=== PATIENT | female | born 1935 | race Caucasian/White ===

== ENCOUNTER 2021-11-16 10:30 | Inpatient (IN) ==
[2021-11-16] MEDS ORDERED: Albuterol 2.5 MG/3 ML NEBULIZER IH ONE (10:35)
[2021-11-16] MEDS ORDERED: methylPREDNISolone 125 MG/2 ML VIAL IVP ONE (10:35)
[2021-11-16] MEDS ORDERED: Azithromycin 500 MG in 0.9 % Sodium Chloride 250 ML IVPB ONE (10:35)
[2021-11-16] MEDS ORDERED: cefTRIAXone 2,000 MG in Water for inj. (sterile) 10 ML IVP ONE (10:35)
[2021-11-16 10:57] LABS: Basophils % 0.7 %; Hematocrit 36.1 % (35.3-44.9); Hemoglobin 11.3 g/dL (11.5-15.4); Immature Granulocytes % 4.1 % (0-4); Lymphocytes # 0.6 K/mcL (0.6-4.6); Lymphocytes % 10.5 %; Mean Corpuscular HGB Conc 31.3 g/dL (31.6-35.5); Mean Corpuscular Volume 89.4 fL (83.0-100.0); Mean Platelet Volume 9.9 fL (9.4-12.4); Monocytes # 0.6 K/mcL (0.0-1.3); Monocytes % 9.5 %; Neutrophils # 4.4 K/mcL (1.6-8.9); Platelet Count 170 K/mcL (140-400); Red Blood Count 4.04 M/mcL (3.82-4.97); Red Cell Distribution Width 15.3 % (11.5-14.5); Segmented Neutrophils % 75.2 %; White Blood Count 5.8 K/mcL (4.3-11.1)
[2021-11-16 11:12] LABS: BUN/Creatinine Ratio 24 (6-26); Blood Urea Nitrogen 21 mg/dL (8-23); Carbon Dioxide 33 mEq/L (23-29); Chloride 101 mEq/L (98-107); Glucose 167 mg/dL (70-105); Osmolality,Calculated 303 (280-300); Potassium 3.2 mEq/L (3.5-5.1); Sodium 143 mEq/L (136-145); eGFR For African Americans > 60 (> 60); eGFR For Non-African Americans > 60 (> 60)
[2021-11-16 11:16] LABS: Troponin I 0.03 ng/mL (< 0.04)
[2021-11-16] MEDS ORDERED: Ipratropium/Albuterol Neb 3 ML IH ONE (11:43)
[2021-11-16] MEDS ORDERED: Ondansetron 4 MG/2 ML VIAL IVP PRN (13:18)
[2021-11-16] MEDS ORDERED: Naloxone 0.4 MG/ML INJ IVP PRN (13:18)
[2021-11-16] MEDS ORDERED: MOM Conc 10 ML UD.LIQ PO PRN (13:18)
[2021-11-16] MEDS ORDERED: Acetaminophen 325 MG TABLET PO PRN (13:18)
[2021-11-16] MEDS ORDERED: Mag Hydrox/Al Hydrox/Simeth 30 ML UDC PO PRN (13:18)
[2021-11-16] MEDS ORDERED: *HR* LORazepam 0.5 MG TABLET PO PRN (13:19)
[2021-11-16] MEDS ORDERED: Ipratropium/Albuterol Neb 3 ML IH PRN (13:28)
[2021-11-16] MEDS ORDERED: D5% in Water 1,000 ML IVC PRN (13:31)
[2021-11-16] MEDS ORDERED: *HR* Dextrose 50 % in Water (Syg) 50 ML SYRINGE IVP PRN (13:31)
[2021-11-16] MEDS ORDERED: Dextrose Gel 15 GM/37.5 ML TUBE PO PRN ×2 (13:31)
[2021-11-16] MEDS: Ipratropium/Albuterol Neb 3 ML IH SCH ×2 (15:15→22:43)
[2021-11-16] MEDS: Benzonatate 100 MG CAPSULE PO PRN (15:50)
[2021-11-16] MEDS: Insulin LISPRO 300 UNITS/3 ML VIAL SUBQ SCH ×2 (16:39→22:09)
[2021-11-16 17:02] LABS: Adenovirus Not Detected (Not Detect); Coronavirus 229E Not Detected (Not Detect); Coronavirus HKU1 Not Detected (Not Detect); Coronavirus NL63 Not Detected (Not Detect); Coronavirus OC43 Not Detected (Not Detect); Human Metapneumovirus Not Detected (Not Detect); Human Rhinovirus/Enterovirus DETECTED (Not Detect); Influenza A Subtype 2009 H1 Not Detected (Not Detect); Influenza B Not Detected (Not Detect); Parainfluenza Virus 1 Not Detected (Not Detect); Parainfluenza Virus 2 Not Detected (Not Detect); SARS-CoV-2 Not Detected (Not Detect)
[2021-11-16 17:03] LABS: Bordetella Pertussis Not Detected (Not Detect); Chlamydophila pneumoniae Not Detected (Not Detect); Mycoplasma pneumoniae Not Detected (Not Detect); Parainfluenza Virus 3 Not Detected (Not Detect); Parainfluenza Virus 4 Not Detected (Not Detect); Respiratory Syncytial Virus Not Detected (Not Detect)
[2021-11-16] MEDS ORDERED: FLUTICASONE FUROATE 200 MCG AER SCH (18:00)
[2021-11-16] MEDS: Bumetanide 1 MG TABLET PO SCH (22:07)
[2021-11-17] MEDS: Ipratropium/Albuterol Neb 3 ML IH SCH ×4 (04:33→21:41)
[2021-11-17] MEDS: *HR* Enoxaparin 40 MG/0.4 ML SYRINGE SQ SCH (06:51)
[2021-11-17] MEDS: Bumetanide 1 MG TABLET PO SCH ×2 (08:12→21:55)
[2021-11-17] MEDS: Benzonatate 100 MG CAPSULE PO PRN (08:12)
[2021-11-17] MEDS: Cholecalciferol (D-3) 1,000 UNIT (25MCG) TABLET PO SCH (08:12)
[2021-11-17] MEDS: Roflumilast [Daliresp] 500 MCG Tablet PO SCH (08:12)
[2021-11-17] MEDS: Insulin LISPRO 300 UNITS/3 ML VIAL SUBQ SCH ×4 (08:13→21:49)
[2021-11-17] MEDS: cefTRIAXone 2,000 MG in 0.9 % Sodium Chloride Mini Bag 100 ML IVPB SCH (08:13)
[2021-11-17 08:44] LABS: Basophils # 0.1 K/mcL (0.0-0.2); Hematocrit 37.5 % (35.3-44.9); Hemoglobin 11.6 g/dL (11.5-15.4); Immature Granulocytes % 10.4 % (0-4); Lymphocytes # 0.8 K/mcL (0.6-4.6); Lymphocytes % 13.3 %; Mean Corpuscular HGB Conc 30.9 g/dL (31.6-35.5); Mean Corpuscular Hemoglobin 28.1 pg (28.0-33.3); Mean Corpuscular Volume 90.8 fL (83.0-100.0); Mean Platelet Volume 9.9 fL (9.4-12.4); Monocytes # 0.5 K/mcL (0.0-1.3); Monocytes % 7.7 %; Platelet Count 203 K/mcL (140-400); Red Blood Count 4.13 M/mcL (3.82-4.97); Red Cell Distribution Width 15.2 % (11.5-14.5); Segmented Neutrophils % 67.6 %
[2021-11-17] MEDS ORDERED: Anoro Ellipta 62.5-2 AER SCH (09:00)
[2021-11-17 09:03] LABS: BUN/Creatinine Ratio 26 (6-26); Blood Urea Nitrogen 21 mg/dL (8-23); Calcium 9.1 mg/dL (8.6-10.3); Carbon Dioxide 35 mEq/L (23-29); Chloride 102 mEq/L (98-107); Glucose 177 mg/dL (70-105); Osmolality,Calculated 305 (280-300); Sodium 144 mEq/L (136-145); eGFR For African Americans > 60 (> 60); eGFR For Non-African Americans > 60 (> 60)
[2021-11-17 09:54] LABS: Platelet Estimate Normal (Normal)
[2021-11-17] MEDS: Budesonide/Formoterol 160/4.5 1 PUFF INH IH SCH ×2 (09:54→23:15)
[2021-11-17] MEDS: Azithromycin 500 MG in 0.9 % Sodium Chloride 250 ML IVPB SCH (15:57)
[2021-11-17] MEDS: MethylPREDNISolone 40 MG/ML VIAL IVP SCH (21:54)
[2021-11-18] MEDS: Ipratropium/Albuterol Neb 3 ML IH SCH ×4 (04:44→22:35)
[2021-11-18] MEDS: MethylPREDNISolone 40 MG/ML VIAL IVP SCH ×4 (06:23→23:34)
[2021-11-18] MEDS: *HR* Enoxaparin 40 MG/0.4 ML SYRINGE SQ SCH (06:23)
[2021-11-18 06:46] LABS: Basophils % 0.2 %; Hematocrit 39.5 % (35.3-44.9); Hemoglobin 12.3 g/dL (11.5-15.4); Immature Granulocytes % 13.1 % (0-4); Lymphocytes # 0.6 K/mcL (0.6-4.6); Lymphocytes % 9.5 %; Mean Corpuscular HGB Conc 31.1 g/dL (31.6-35.5); Mean Corpuscular Hemoglobin 27.9 pg (28.0-33.3); Mean Corpuscular Volume 89.6 fL (83.0-100.0); Mean Platelet Volume 9.9 fL (9.4-12.4); Monocytes # 0.3 K/mcL (0.0-1.3); Monocytes % 4.4 %; Neutrophils # 4.5 K/mcL (1.6-8.9); Platelet Count 208 K/mcL (140-400); Red Blood Count 4.41 M/mcL (3.82-4.97); Segmented Neutrophils % 72.8 %; White Blood Count 6.1 K/mcL (4.3-11.1)
[2021-11-18 07:02] LABS: BUN/Creatinine Ratio 30 (6-26); Blood Urea Nitrogen 26 mg/dL (8-23); Calcium 8.7 mg/dL (8.6-10.3); Carbon Dioxide 36 mEq/L (23-29); Chloride 93 mEq/L (98-107); Glucose 390 mg/dL (70-105); Osmolality,Calculated 307 (280-300); Potassium 4.6 mEq/L (3.5-5.1); Sodium 138 mEq/L (136-145); eGFR For African Americans > 60 (> 60); eGFR For Non-African Americans > 60 (> 60)
[2021-11-18 08:07] LABS: Platelet Estimate Normal (Normal)
[2021-11-18] MEDS: cefTRIAXone 2,000 MG in 0.9 % Sodium Chloride Mini Bag 100 ML IVPB SCH (08:42)
[2021-11-18] MEDS: Bumetanide 1 MG TABLET PO SCH ×2 (08:42→19:59)
[2021-11-18] MEDS: Cholecalciferol (D-3) 1,000 UNIT (25MCG) TABLET PO SCH (08:42)
[2021-11-18] MEDS: Roflumilast [Daliresp] 500 MCG Tablet PO SCH (08:43)
[2021-11-18] MEDS: Insulin LISPRO 300 UNITS/3 ML VIAL SUBQ SCH ×4 (08:43→20:07)
[2021-11-18] MEDS: Budesonide/Formoterol 160/4.5 1 PUFF INH IH SCH ×2 (09:38→22:34)
[2021-11-18] MEDS: Azithromycin 500 MG in 0.9 % Sodium Chloride 250 ML IVPB SCH (14:03)
[2021-11-18] MEDS: Acetylcysteine 10% 10 ML VIAL IH SCH ×2 (15:00→22:34)
[2021-11-19] MEDS: Ipratropium/Albuterol Neb 3 ML IH SCH ×4 (04:40→23:06)
[2021-11-19] MEDS: Acetylcysteine 10% 10 ML VIAL IH SCH ×4 (04:44→23:06)
[2021-11-19] MEDS: MethylPREDNISolone 40 MG/ML VIAL IVP SCH ×3 (05:42→17:37)
[2021-11-19] MEDS: *HR* Enoxaparin 40 MG/0.4 ML SYRINGE SQ SCH (05:43)
[2021-11-19 08:25] LABS: Hematocrit 39.1 % (35.3-44.9); Hemoglobin 12.3 g/dL (11.5-15.4); Mean Corpuscular HGB Conc 31.5 g/dL (31.6-35.5); Mean Corpuscular Hemoglobin 28.1 pg (28.0-33.3); Mean Corpuscular Volume 89.5 fL (83.0-100.0); Mean Platelet Volume 9.5 fL (9.4-12.4); Monocytes # 0.2 K/mcL (0.0-1.3); Platelet Count 233 K/mcL (140-400); Red Blood Count 4.37 M/mcL (3.82-4.97); Red Cell Distribution Width 14.7 % (11.5-14.5); White Blood Count 9.6 K/mcL (4.3-11.1)
[2021-11-19 09:09] LABS: Lymphocytes # 0.2 K/mcL (0.6-4.6); Neutrophils # 8.6 K/mcL (1.6-8.9); Platelet Estimate Normal (Normal)
[2021-11-19 09:14] LABS: BUN/Creatinine Ratio 32 (6-26); Blood Urea Nitrogen 27 mg/dL (8-23); Calcium 9.3 mg/dL (8.6-10.3); Carbon Dioxide 40 mEq/L (23-29); Chloride 94 mEq/L (98-107); Glucose 344 mg/dL (70-105); Osmolality,Calculated 311 (280-300); Potassium 4.3 mEq/L (3.5-5.1); Sodium 141 mEq/L (136-145); eGFR For African Americans > 60 (> 60); eGFR For Non-African Americans > 60 (> 60)
[2021-11-19] MEDS: cefTRIAXone 2,000 MG in 0.9 % Sodium Chloride Mini Bag 100 ML IVPB SCH (09:16)
[2021-11-19] MEDS: Bumetanide 1 MG TABLET PO SCH ×2 (09:24→20:17)
[2021-11-19] MEDS: Cholecalciferol (D-3) 1,000 UNIT (25MCG) TABLET PO SCH (09:26)
[2021-11-19] MEDS: Roflumilast [Daliresp] 500 MCG Tablet PO SCH (09:27)
[2021-11-19] MEDS: Insulin LISPRO 300 UNITS/3 ML VIAL SUBQ SCH ×4 (09:28→23:05)
[2021-11-19] MEDS: Budesonide/Formoterol 160/4.5 1 PUFF INH IH SCH ×2 (11:10→23:06)
[2021-11-19] MEDS: Azithromycin 500 MG in 0.9 % Sodium Chloride 250 ML IVPB SCH (16:21)
[2021-11-20] MEDS: MethylPREDNISolone 40 MG/ML VIAL IVP SCH ×2 (00:17→05:17)
[2021-11-20] MEDS: Acetylcysteine 10% 10 ML VIAL IH SCH ×3 (04:33→16:26)
[2021-11-20] MEDS: Ipratropium/Albuterol Neb 3 ML IH SCH ×3 (04:33→16:26)
[2021-11-20] MEDS: *HR* Enoxaparin 40 MG/0.4 ML SYRINGE SQ SCH (05:17)
[2021-11-20] MEDS: Bumetanide 1 MG TABLET PO SCH (08:38)
[2021-11-20] MEDS: cefTRIAXone 2,000 MG in 0.9 % Sodium Chloride Mini Bag 100 ML IVPB SCH (08:38)
[2021-11-20] MEDS: Cholecalciferol (D-3) 1,000 UNIT (25MCG) TABLET PO SCH (08:38)
[2021-11-20] MEDS: Insulin LISPRO 300 UNITS/3 ML VIAL SUBQ SCH ×3 (08:39→17:07)
[2021-11-20] MEDS: Roflumilast [Daliresp] 500 MCG Tablet PO SCH (08:49)
[2021-11-20 09:15] LABS: Hematocrit 39.9 % (35.3-44.9); Hemoglobin 12.7 g/dL (11.5-15.4); Mean Corpuscular HGB Conc 31.8 g/dL (31.6-35.5); Mean Corpuscular Hemoglobin 28.4 pg (28.0-33.3); Mean Corpuscular Volume 89.3 fL (83.0-100.0); Mean Platelet Volume 10.1 fL (9.4-12.4); Platelet Count 268 K/mcL (140-400); Red Blood Count 4.47 M/mcL (3.82-4.97); Red Cell Distribution Width 14.6 % (11.5-14.5); White Blood Count 16.1 K/mcL (4.3-11.1)
[2021-11-20] MEDS ORDERED: acetaZOLAMIDE 250 MG TABLET PO SCH (09:15)
[2021-11-20 09:49] LABS: BUN/Creatinine Ratio 38 (6-26); Blood Urea Nitrogen 35 mg/dL (8-23); Calcium 9.2 mg/dL (8.6-10.3); Carbon Dioxide 36 mEq/L (23-29); Chloride 91 mEq/L (98-107); Glucose 412 mg/dL (70-105); Osmolality,Calculated 309 (280-300); Potassium 4.2 mEq/L (3.5-5.1); Sodium 137 mEq/L (136-145); eGFR For African Americans > 60 (> 60); eGFR For Non-African Americans 57 (> 60)
[2021-11-20] MEDS ORDERED: Insulin DETEMIR 100 UNIT/ML X5UNITS SUBQ SCH (10:15)
[2021-11-20] MEDS: Budesonide/Formoterol 160/4.5 1 PUFF INH IH SCH (11:28)
[2021-11-20 12:01] LABS: Lymphocytes # 1.3 K/mcL (0.6-4.6); Neutrophils # 13.5 K/mcL (1.6-8.9)
[2021-11-20 12:02] LABS: Platelet Estimate Normal (Normal)
[2021-11-20 12:34] VITALS: RESP 16; O2SAT 91
[2021-11-20] MEDS ORDERED: Azithromycin 250 MG TABLET PO SCH (14:00)
[2021-11-20 16:44] VITALS: BP 150/54; PULSE 72; TEMP 98.7
[2021-11-20] MEDS ORDERED: MethylPREDNISolone 40 MG/ML VIAL IVP SCH (18:00)
[2021-11-20] MEDS ORDERED: Furosemide 20 MG/2 ML VIAL IVP SCH (21:00)
[2021-11-21] MEDS ORDERED: Fluticasone Propionate Nasal 50 MCG/SPRAY BOTTLE NS SCH (09:00)
== END 2021-11-20 19:32 | disposition other institution (70) | DRG 193 ==
LOC: EMEROOPIK 10:30 → INPPIK 10:30
PROVIDERS: ADMIT Internal Medicine; ATTEND Internal Medicine

== ENCOUNTER 2021-11-20 17:46 | Inpatient (IN) ==
[2021-11-20] MEDS ORDERED: Albuterol 2.5 MG/3 ML NEBULIZER IH PRN (18:33)
[2021-11-20] MEDS ORDERED: *HR* LORazepam 0.5 MG TABLET PO PRN (18:33)
[2021-11-20] MEDS ORDERED: Acetaminophen 325 MG TABLET PO PRN (18:50)
[2021-11-20] MEDS ORDERED: D5% in Water 1,000 ML IVC PRN (18:58)
[2021-11-20] MEDS ORDERED: *HR* Dextrose 50 % in Water (Syg) 50 ML SYRINGE IVP PRN (18:58)
[2021-11-20] MEDS ORDERED: Azithromycin 250 MG TABLET PO SCH (19:00)
[2021-11-20] MEDS ORDERED: Dextrose Gel 15 GM/37.5 ML TUBE PO PRN (19:14)
[2021-11-20] MEDS ORDERED: MOM Conc 10 ML UD.LIQ PO PRN (19:26)
[2021-11-20] MEDS ORDERED: Naloxone 0.4 MG/ML INJ IVP PRN (19:27)
[2021-11-20] MEDS ORDERED: Ondansetron 4 MG/2 ML VIAL IVP PRN (19:28)
[2021-11-20] MEDS ORDERED: hydrOXYzine pamoate 25 MG CAPSULE PO PRN ×2 (20:50→21:31)
[2021-11-20] MEDS ORDERED: NON-FORMULARY MEDICATION 1 EACH EACH (Bumetanide 2 MG Tablet) PO SCH (21:00)
[2021-11-20] MEDS ORDERED: Furosemide 20 MG/2 ML VIAL IVP SCH (21:00)
[2021-11-20] MEDS ORDERED: NON-FORMULARY MEDICATION 1 EACH EACH (Insulin Aspart [Novolog Flexpen] 100 UNIT/ML Insuln. SQ SCH (21:00)
[2021-11-20] MEDS: Ipratropium/Albuterol Neb 3 ML IH SCH (21:30)
[2021-11-20] MEDS ORDERED: Insulin DETEMIR 100 UNIT/ML per UNIT SUBQ ONE (21:45)
[2021-11-20] MEDS: Insulin LISPRO 300 UNITS/3 ML VIAL SUBQ SCH (22:08)
[2021-11-20] MEDS: acetaZOLAMIDE 250 MG TABLET PO SCH (22:08)
[2021-11-20] MEDS: Budesonide/Formoterol 160/4.5 1 PUFF INH IH SCH (23:24)
[2021-11-20] MEDS: Acetylcysteine 10% 10 ML VIAL IH SCH (23:24)
[2021-11-21] MEDS: Ipratropium/Albuterol Neb 3 ML IH SCH ×4 (04:09→23:26)
[2021-11-21] MEDS: Acetylcysteine 10% 10 ML VIAL IH SCH ×4 (04:09→23:26)
[2021-11-21] MEDS: *HR* Enoxaparin 40 MG/0.4 ML SYRINGE SQ SCH (05:31)
[2021-11-21] MEDS ORDERED: cefTRIAXone 2,000 MG in 0.9 % Sodium Chloride Mini Bag 100 ML IVPB SCH (06:00)
[2021-11-21] MEDS ORDERED: MethylPREDNISolone 40 MG/ML VIAL IVP SCH (06:00)
[2021-11-21] MEDS: Insulin LISPRO 300 UNITS/3 ML VIAL SUBQ SCH ×4 (08:00→21:27)
[2021-11-21] MEDS: acetaZOLAMIDE 250 MG TABLET PO SCH ×2 (08:06→21:24)
[2021-11-21] MEDS: Fluticasone Propionate Nasal 50 MCG/SPRAY BOTTLE NS SCH (08:06)
[2021-11-21] MEDS: Furosemide 40 MG TABLET PO SCH (08:07)
[2021-11-21] MEDS: Insulin DETEMIR 100 UNIT/ML X5UNITS SUBQ SCH ×2 (08:07→21:27)
[2021-11-21] MEDS: DALIRESP 500MCG PO SCH (08:07)
[2021-11-21] MEDS: predniSONE 20 MG TABLET PO SCH (08:08)
[2021-11-21] MEDS: Cholecalciferol (D-3) 1,000 UNIT (25MCG) TABLET PO SCH (08:08)
[2021-11-21] MEDS: GuaiFENesin Liq 200 MG/10 ML UDC PO SCH (08:08)
[2021-11-21] MEDS ORDERED: NON-FORMULARY MEDICATION 1 EACH EACH (Insulin Degludec [Tresiba Flextouch U-200] 200 UNIT/ SQ SCH (09:00)
[2021-11-21] MEDS ORDERED: NON-FORMULARY MEDICATION 1 EACH EACH (Fluticasone/Umeclidin/Vilanter [Trelegy Ellipta 100- IH SCH (09:00)
[2021-11-21] MEDS: Budesonide/Formoterol 160/4.5 1 PUFF INH IH SCH ×2 (09:30→23:26)
[2021-11-21] MEDS ORDERED: Famotidine 20 MG/2 ML VIAL IVP ONE (11:48)
[2021-11-21] MEDS ORDERED: Acetaminophen IV 1,000 MG/100 ML BAG IVPB ONE (11:48)
[2021-11-21 16:30] LABS: Hematocrit 41.4 % (35.3-44.9); Hemoglobin 12.8 g/dL (11.5-15.4); Mean Corpuscular HGB Conc 30.9 g/dL (31.6-35.5); Mean Corpuscular Volume 90.6 fL (83.0-100.0); Mean Platelet Volume 9.8 fL (9.4-12.4); Platelet Count 203 K/mcL (140-400); Red Blood Count 4.57 M/mcL (3.82-4.97); White Blood Count 15.2 K/mcL (4.3-11.1)
[2021-11-21 17:01] LABS: BUN/Creatinine Ratio 41 (6-26); Blood Urea Nitrogen 35 mg/dL (8-23); Calcium 9.4 mg/dL (8.6-10.3); Carbon Dioxide 32 mEq/L (23-29); Chloride 101 mEq/L (98-107); Glucose 194 mg/dL (70-105); Magnesium 2.2 mg/dL (1.6-2.6); Osmolality,Calculated 305 (280-300); Potassium 4.5 mEq/L (3.5-5.1); Sodium 141 mEq/L (136-145); eGFR For African Americans > 60 (> 60); eGFR For Non-African Americans > 60 (> 60)
[2021-11-21] MEDS: Benzonatate 100 MG CAPSULE PO PRN (21:27)
[2021-11-22] MEDS: Ipratropium/Albuterol Neb 3 ML IH SCH ×4 (04:21→22:30)
[2021-11-22] MEDS: Acetylcysteine 10% 10 ML VIAL IH SCH ×4 (04:21→22:31)
[2021-11-22] MEDS: *HR* Enoxaparin 40 MG/0.4 ML SYRINGE SQ SCH (06:43)
[2021-11-22] MEDS: DALIRESP 500MCG PO SCH (08:07)
[2021-11-22] MEDS: Insulin DETEMIR 100 UNIT/ML X5UNITS SUBQ SCH ×2 (08:25→21:46)
[2021-11-22] MEDS: GuaiFENesin Liq 200 MG/10 ML UDC PO SCH (08:25)
[2021-11-22] MEDS: Cholecalciferol (D-3) 1,000 UNIT (25MCG) TABLET PO SCH (08:26)
[2021-11-22] MEDS: predniSONE 20 MG TABLET PO SCH (08:26)
[2021-11-22] MEDS: Furosemide 40 MG TABLET PO SCH (08:26)
[2021-11-22] MEDS: Insulin LISPRO 300 UNITS/3 ML VIAL SUBQ SCH ×4 (08:27→21:47)
[2021-11-22] MEDS: acetaZOLAMIDE 250 MG TABLET PO SCH ×2 (08:27→21:46)
[2021-11-22] MEDS: Budesonide/Formoterol 160/4.5 1 PUFF INH IH SCH ×2 (09:34→22:30)
[2021-11-22] MEDS: Fluticasone Propionate Nasal 50 MCG/SPRAY BOTTLE NS SCH (12:24)
[2021-11-22] MEDS: Benzonatate 100 MG CAPSULE PO PRN (21:45)
[2021-11-23] MEDS: Ipratropium/Albuterol Neb 3 ML IH SCH ×4 (04:21→20:54)
[2021-11-23] MEDS: Acetylcysteine 10% 10 ML VIAL IH SCH (04:22)
[2021-11-23] MEDS: *HR* Enoxaparin 40 MG/0.4 ML SYRINGE SQ SCH (06:45)
[2021-11-23] MEDS: Cholecalciferol (D-3) 1,000 UNIT (25MCG) TABLET PO SCH (08:17)
[2021-11-23] MEDS: Fluticasone Propionate Nasal 50 MCG/SPRAY BOTTLE NS SCH (08:17)
[2021-11-23] MEDS: GuaiFENesin Liq 200 MG/10 ML UDC PO SCH (08:17)
[2021-11-23] MEDS: Furosemide 40 MG TABLET PO SCH (08:18)
[2021-11-23] MEDS: acetaZOLAMIDE 250 MG TABLET PO SCH (08:18)
[2021-11-23] MEDS: Insulin LISPRO 300 UNITS/3 ML VIAL SUBQ SCH ×4 (08:19→21:04)
[2021-11-23] MEDS: Insulin DETEMIR 100 UNIT/ML X5UNITS SUBQ SCH ×2 (08:19→21:04)
[2021-11-23] MEDS: DALIRESP 500MCG PO SCH (08:20)
[2021-11-23] MEDS: predniSONE 10 MG TABLET PO SCH (08:23)
[2021-11-23] MEDS: Budesonide/Formoterol 160/4.5 1 PUFF INH IH SCH ×2 (10:39→20:54)
[2021-11-24] MEDS: Ipratropium/Albuterol Neb 3 ML IH SCH ×4 (04:27→22:12)
[2021-11-24] MEDS: *HR* Enoxaparin 40 MG/0.4 ML SYRINGE SQ SCH (06:13)
[2021-11-24] MEDS: Cholecalciferol (D-3) 1,000 UNIT (25MCG) TABLET PO SCH (08:19)
[2021-11-24] MEDS: GuaiFENesin Liq 200 MG/10 ML UDC PO SCH (08:19)
[2021-11-24] MEDS: Fluticasone Propionate Nasal 50 MCG/SPRAY BOTTLE NS SCH (08:19)
[2021-11-24] MEDS: predniSONE 10 MG TABLET PO SCH (08:19)
[2021-11-24] MEDS: Furosemide 40 MG TABLET PO SCH (08:20)
[2021-11-24] MEDS: DALIRESP 500MCG PO SCH (08:20)
[2021-11-24] MEDS: Insulin LISPRO 300 UNITS/3 ML VIAL SUBQ SCH ×4 (08:20→20:46)
[2021-11-24] MEDS: Insulin DETEMIR 100 UNIT/ML X5UNITS SUBQ SCH ×2 (08:31→20:46)
[2021-11-24] MEDS: Budesonide/Formoterol 160/4.5 1 PUFF INH IH SCH ×2 (10:16→22:12)
[2021-11-25] MEDS: Ipratropium/Albuterol Neb 3 ML IH SCH ×4 (04:07→22:20)
[2021-11-25] MEDS: *HR* Enoxaparin 40 MG/0.4 ML SYRINGE SQ SCH (06:18)
[2021-11-25] MEDS: Cholecalciferol (D-3) 1,000 UNIT (25MCG) TABLET PO SCH (09:10)
[2021-11-25] MEDS: Furosemide 40 MG TABLET PO SCH (09:11)
[2021-11-25] MEDS: predniSONE 20 MG TABLET PO SCH (09:11)
[2021-11-25] MEDS: Insulin DETEMIR 100 UNIT/ML X5UNITS SUBQ SCH ×2 (09:12→20:04)
[2021-11-25] MEDS: Insulin LISPRO 300 UNITS/3 ML VIAL SUBQ SCH ×4 (09:12→20:05)
[2021-11-25] MEDS: Fluticasone Propionate Nasal 50 MCG/SPRAY BOTTLE NS SCH (09:13)
[2021-11-25] MEDS: DALIRESP 500MCG PO SCH (09:13)
[2021-11-25] MEDS: GuaiFENesin Liq 200 MG/10 ML UDC PO SCH (09:14)
[2021-11-25] MEDS: Budesonide/Formoterol 160/4.5 1 PUFF INH IH SCH ×2 (10:15→22:20)
[2021-11-25 11:17] LABS: Hematocrit 40.3 % (35.3-44.9); Hemoglobin 12.6 g/dL (11.5-15.4); Mean Corpuscular HGB Conc 31.3 g/dL (31.6-35.5); Mean Corpuscular Hemoglobin 28.7 pg (28.0-33.3); Mean Corpuscular Volume 91.8 fL (83.0-100.0); Mean Platelet Volume 10.5 fL (9.4-12.4); Platelet Count 172 K/mcL (140-400); Red Blood Count 4.39 M/mcL (3.82-4.97); Red Cell Distribution Width 15.3 % (11.5-14.5); White Blood Count 13.4 K/mcL (4.3-11.1)
[2021-11-25 11:33] LABS: BUN/Creatinine Ratio 23 (6-26); Blood Urea Nitrogen 21 mg/dL (8-23); Calcium 8.5 mg/dL (8.6-10.3); Carbon Dioxide 30 mEq/L (23-29); Chloride 102 mEq/L (98-107); Glucose 303 mg/dL (70-105); Osmolality,Calculated 300 (280-300); Potassium 4.1 mEq/L (3.5-5.1); Sodium 138 mEq/L (136-145); eGFR For African Americans > 60 (> 60); eGFR For Non-African Americans 57 (> 60)
[2021-11-25 12:00] LABS: Lymphocytes # 0.8 K/mcL (0.6-4.6); Monocytes # 0.3 K/mcL (0.0-1.3); Neutrophils # 12.1 K/mcL (1.6-8.9)
[2021-11-25 12:02] LABS: Platelet Estimate Normal (Normal)
[2021-11-26] MEDS: Ipratropium/Albuterol Neb 3 ML IH SCH ×4 (04:02→22:42)
[2021-11-26] MEDS: *HR* Enoxaparin 40 MG/0.4 ML SYRINGE SQ SCH (06:35)
[2021-11-26] MEDS: Furosemide 40 MG TABLET PO SCH (09:13)
[2021-11-26] MEDS: Cholecalciferol (D-3) 1,000 UNIT (25MCG) TABLET PO SCH (09:13)
[2021-11-26] MEDS: predniSONE 20 MG TABLET PO SCH (09:14)
[2021-11-26] MEDS: GuaiFENesin Liq 200 MG/10 ML UDC PO SCH (09:14)
[2021-11-26] MEDS: Insulin DETEMIR 100 UNIT/ML X5UNITS SUBQ SCH ×2 (09:15→21:16)
[2021-11-26] MEDS: Fluticasone Propionate Nasal 50 MCG/SPRAY BOTTLE NS SCH (09:15)
[2021-11-26] MEDS: DALIRESP 500MCG PO SCH (09:23)
[2021-11-26] MEDS: Budesonide/Formoterol 160/4.5 1 PUFF INH IH SCH ×2 (09:29→22:42)
[2021-11-26] MEDS: Insulin LISPRO 300 UNITS/3 ML VIAL SUBQ SCH ×4 (09:36→21:16)
[2021-11-26] MEDS: Benzonatate 100 MG CAPSULE PO PRN (21:16)
[2021-11-27] MEDS: Ipratropium/Albuterol Neb 3 ML IH SCH ×4 (04:41→22:38)
[2021-11-27] MEDS: *HR* Enoxaparin 40 MG/0.4 ML SYRINGE SQ SCH (05:27)
[2021-11-27] MEDS: Insulin LISPRO 300 UNITS/3 ML VIAL SUBQ SCH ×4 (08:32→20:27)
[2021-11-27] MEDS: Cholecalciferol (D-3) 1,000 UNIT (25MCG) TABLET PO SCH (08:33)
[2021-11-27] MEDS: Insulin DETEMIR 100 UNIT/ML X5UNITS SUBQ SCH ×2 (08:33→20:28)
[2021-11-27] MEDS: Fluticasone Propionate Nasal 50 MCG/SPRAY BOTTLE NS SCH (08:33)
[2021-11-27] MEDS: Furosemide 40 MG TABLET PO SCH (08:34)
[2021-11-27] MEDS: GuaiFENesin Liq 200 MG/10 ML UDC PO SCH (08:34)
[2021-11-27] MEDS: predniSONE 10 MG TABLET PO SCH (08:34)
[2021-11-27] MEDS: DALIRESP 500MCG PO SCH (08:35)
[2021-11-27] MEDS: Budesonide/Formoterol 160/4.5 1 PUFF INH IH SCH ×2 (09:34→22:38)
[2021-11-28] MEDS: Ipratropium/Albuterol Neb 3 ML IH SCH ×4 (04:30→21:30)
[2021-11-28] MEDS: *HR* Enoxaparin 40 MG/0.4 ML SYRINGE SQ SCH (05:14)
[2021-11-28] MEDS: Insulin LISPRO 300 UNITS/3 ML VIAL SUBQ SCH ×4 (08:11→21:24)
[2021-11-28] MEDS: Insulin DETEMIR 100 UNIT/ML X5UNITS SUBQ SCH ×2 (08:34→20:42)
[2021-11-28] MEDS: predniSONE 10 MG TABLET PO SCH (08:35)
[2021-11-28] MEDS: Cholecalciferol (D-3) 1,000 UNIT (25MCG) TABLET PO SCH (08:35)
[2021-11-28] MEDS: GuaiFENesin Liq 200 MG/10 ML UDC PO SCH (08:35)
[2021-11-28] MEDS: DALIRESP 500MCG PO SCH (08:36)
[2021-11-28] MEDS: Fluticasone Propionate Nasal 50 MCG/SPRAY BOTTLE NS SCH (08:36)
[2021-11-28] MEDS: Furosemide 40 MG TABLET PO SCH (08:36)
[2021-11-28] MEDS: Budesonide/Formoterol 160/4.5 1 PUFF INH IH SCH ×2 (10:23→21:30)
[2021-11-28 23:19] VITALS: RESP 18
[2021-11-29] MEDS: Ipratropium/Albuterol Neb 3 ML IH SCH ×3 (04:08→16:19)
[2021-11-29] MEDS: *HR* Enoxaparin 40 MG/0.4 ML SYRINGE SQ SCH (05:46)
[2021-11-29] MEDS: GuaiFENesin Liq 200 MG/10 ML UDC PO SCH (07:55)
[2021-11-29] MEDS: Fluticasone Propionate Nasal 50 MCG/SPRAY BOTTLE NS SCH (07:55)
[2021-11-29] MEDS: Furosemide 40 MG TABLET PO SCH (07:56)
[2021-11-29] MEDS: Cholecalciferol (D-3) 1,000 UNIT (25MCG) TABLET PO SCH (07:56)
[2021-11-29] MEDS: Insulin LISPRO 300 UNITS/3 ML VIAL SUBQ SCH ×2 (07:57→12:13)
[2021-11-29] MEDS: DALIRESP 500MCG PO SCH (08:08)
[2021-11-29 08:21] VITALS: PULSE 75; TEMP 98
[2021-11-29] MEDS: Insulin DETEMIR 100 UNIT/ML X5UNITS SUBQ SCH (08:32)
[2021-11-29] MEDS: Budesonide/Formoterol 160/4.5 1 PUFF INH IH SCH (10:15)
[2021-11-29 10:18] VITALS: BP 136/72
[2021-11-29 10:25] VITALS: O2SAT 94
== END 2021-11-29 15:30 | disposition home health service (06) | DRG 190 ==
LOC: INPPIK 19:59
PROVIDERS: ADMIT Family Medicine; ATTEND Family Medicine

== ENCOUNTER 2021-12-07 14:26 | Observation (INO) ==
[2021-12-07] MEDS ORDERED: Albuterol 2.5 MG/3 ML NEBULIZER IH ONE (14:33)
[2021-12-07] MEDS ORDERED: cefTRIAXone 2,000 MG in 0.9 % Sodium Chloride Mini Bag 100 ML IVPB ONE (14:33)
[2021-12-07] MEDS ORDERED: Azithromycin 500 MG in 0.9 % Sodium Chloride 250 ML IVPB ONE ×2 (14:33→15:00)
[2021-12-07 15:00] LABS: Basophils % 0.4 %; Hematocrit 35.5 % (35.3-44.9); Hemoglobin 11.4 g/dL (11.5-15.4); Immature Granulocytes % 1.9 % (0-4); Lymphocytes # 0.5 K/mcL (0.6-4.6); Lymphocytes % 19.5 %; Mean Corpuscular HGB Conc 32.1 g/dL (31.6-35.5); Mean Corpuscular Hemoglobin 28.3 pg (28.0-33.3); Mean Corpuscular Volume 88.1 fL (83.0-100.0); Mean Platelet Volume 10.2 fL (9.4-12.4); Monocytes # 0.2 K/mcL (0.0-1.3); Monocytes % 6.5 %; Neutrophils # 1.9 K/mcL (1.6-8.9); Red Blood Count 4.03 M/mcL (3.82-4.97); Red Cell Distribution Width 17.1 % (11.5-14.5); Segmented Neutrophils % 71.7 %; White Blood Count 2.6 K/mcL (4.3-11.1)
[2021-12-07 15:05] LABS: ABG Base Excess 0 mEq/L (-2 to 3); ABG HCO3 22 mEq/L (21-27); ABG Oxygen Saturation 92 % (95-98); ABG PCO2 29 mmHg (35-45); ABG PH 7.49 pH Units (7.32-7.45); ABG PO2 57 mmHg (85-104); ABG TCO2 23 mEq/L (20-26)
[2021-12-07 15:08] LABS: INR 1.2; Prothrombin Time 13.3 Seconds (9.4-12.1)
[2021-12-07 15:12] LABS: Platelet Count 84 K/mcL (140-400)
[2021-12-07 15:17] LABS: Activated Partial Thrombo Time 31.4 Seconds (26.0-36.0)
[2021-12-07 15:19] LABS: BUN/Creatinine Ratio 14 (6-26); Blood Urea Nitrogen 11 mg/dL (8-23); Calcium 7.2 mg/dL (8.6-10.3); Carbon Dioxide 25 mEq/L (23-29); Chloride 97 mEq/L (98-107); Glucose 186 mg/dL (70-105); Osmolality,Calculated 284 (280-300); Potassium 3.1 mEq/L (3.5-5.1); Sodium 135 mEq/L (136-145); eGFR For African Americans > 60 (> 60); eGFR For Non-African Americans > 60 (> 60)
[2021-12-07 15:20] LABS: Albumin 3.5 g/dL (3.5-5.7); Albumin/Globulin Ratio 1.5 (1.1-2.2); Bilirubin,Direct 0.2 mg/dL (0.0-0.2); Bilirubin,Indirect 0.5 mg/dL (0.0-1.0); Bilirubin,Total 0.7 mg/dL (0.3-1.0); Globulin 2.3 g/dL (2.4-3.5); Total Protein 5.8 g/dL (6.4-8.9)
[2021-12-07 15:21] LABS: Troponin I 0.03 ng/mL (< 0.04)
[2021-12-07] MEDS ORDERED: Dexamethasone Sodium Phos/PF 10 MG/ML VIAL IVP ONE ×2 (15:48→18:45)
[2021-12-07] MEDS ORDERED: Acetaminophen 325 MG TABLET PO PRN (15:54)
[2021-12-07] MEDS ORDERED: Naloxone 0.4 MG/ML INJ IVP PRN (15:54)
[2021-12-07] MEDS ORDERED: Ondansetron 4 MG/2 ML VIAL IVP PRN (15:54)
[2021-12-07] MEDS ORDERED: *HR* LORazepam 0.5 MG TABLET PO PRN (16:05)
[2021-12-07] MEDS ORDERED: *HR* Dextrose 50 % in Water (Syg) 50 ML SYRINGE IVP PRN (16:43)
[2021-12-07] MEDS ORDERED: Dextrose Gel 15 GM/37.5 ML TUBE PO PRN ×2 (16:43)
[2021-12-07] MEDS ORDERED: D5% in Water 1,000 ML IVC PRN (16:43)
[2021-12-07] MEDS ORDERED: Bumetanide 1 MG TABLET PO SCH (17:00)
[2021-12-07] MEDS ORDERED: Insulin LISPRO 300 UNITS/3 ML VIAL SUBQ SCH (21:00)
[2021-12-07] MEDS: Bumetanide 1 MG TABLET PO SCH (22:08)
[2021-12-07] MEDS: Budesonide/Formoterol 160/4.5 1 PUFF INH IH SCH (22:52)
[2021-12-08] MEDS ORDERED: 0.9 % Sodium Chloride 250 ML IVC ONE ×2 (00:39→01:31)
[2021-12-08] MEDS ORDERED: *HR* Enoxaparin 40 MG/0.4 ML SYRINGE SQ SCH (06:00)
[2021-12-08 07:44] VITALS: BP 111/72; PULSE 75; TEMP 97.5
[2021-12-08] MEDS: Budesonide/Formoterol 160/4.5 1 PUFF INH IH SCH (08:20)
[2021-12-08] MEDS ORDERED: Tiotropium 10 INH DOSE IH ONE (08:23)
[2021-12-08] MEDS: Insulin LISPRO 300 UNITS/3 ML VIAL SUBQ SCH ×2 (08:28→12:04)
[2021-12-08] MEDS: Bumetanide 1 MG TABLET PO SCH (08:29)
[2021-12-08 08:34] VITALS: RESP 22; O2SAT 93
[2021-12-08 08:57] LABS: Basophils % 0.5 %; Hematocrit 32.5 % (35.3-44.9); Hemoglobin 10.6 g/dL (11.5-15.4); Immature Granulocytes % 2.4 % (0-4); Lymphocytes # 0.4 K/mcL (0.6-4.6); Lymphocytes % 19.5 %; Mean Corpuscular HGB Conc 32.6 g/dL (31.6-35.5); Mean Corpuscular Hemoglobin 28.6 pg (28.0-33.3); Mean Corpuscular Volume 87.6 fL (83.0-100.0); Mean Platelet Volume 10.7 fL (9.4-12.4); Monocytes # 0.1 K/mcL (0.0-1.3); Monocytes % 4.8 %; Neutrophils # 1.5 K/mcL (1.6-8.9); Platelet Count 92 K/mcL (140-400); Red Blood Count 3.71 M/mcL (3.82-4.97); Segmented Neutrophils % 72.8 %; White Blood Count 2.1 K/mcL (4.3-11.1)
[2021-12-08] MEDS ORDERED: cefTRIAXone 2,000 MG in 0.9 % Sodium Chloride Mini Bag 100 ML IVPB SCH (09:00)
[2021-12-08] MEDS ORDERED: GuaiFENesin Liq 200 MG/10 ML UDC PO SCH (09:00)
[2021-12-08] MEDS ORDERED: Cholecalciferol (D-3) 1,000 UNIT (25MCG) TABLET PO SCH (09:00)
[2021-12-08] MEDS ORDERED: Dexamethasone Sodium Phos/PF 10 MG/ML VIAL IVP SCH (09:00)
[2021-12-08] MEDS ORDERED: NON-FORMULARY MEDICATION 1 EACH EACH (Roflumilast [Daliresp] 500 MCG Tablet) PO SCH (09:00)
[2021-12-08 09:58] LABS: BUN/Creatinine Ratio 19 (6-26); Blood Urea Nitrogen 15 mg/dL (8-23); Calcium 6.9 mg/dL (8.6-10.3); Carbon Dioxide 27 mEq/L (23-29); Glucose 237 mg/dL (70-105); Magnesium 1.3 mg/dL (1.6-2.6); eGFR For African Americans > 60 (> 60); eGFR For Non-African Americans > 60 (> 60)
[2021-12-08] MEDS ORDERED: Tiotropium 10 INH DOSE IH SCH (10:00)
[2021-12-08 11:35] LABS: VBG Chloride 102 mEq/L (98-107)
[2021-12-08] MEDS ORDERED: Magnesium Oxide 400 MG TABLET PO STA (12:44)
[2021-12-08] MEDS ORDERED: Azithromycin 500 MG in 0.9 % Sodium Chloride 250 ML IVPB SCH (17:00)
== END 2021-12-08 15:30 | disposition short-term general hospital (02) ==
LOC: INPPIK 14:26 → EMEROOPIK 14:26 → INPPIK 19:18
PROVIDERS: ADMIT Internal Medicine; ATTEND Internal Medicine